=== PATIENT | female | born 1980 | race African-American/Black ===

== ENCOUNTER 2018-08-24 06:07 | Emergency (ER) | payer MEDICAID ==
[~2018-08-24] VITALS: Ht 170.2 cm; Wt 81.6 kg
[2018-08-24 06:53] LABS: Basophils # (auto) 0.1 uL; Basophils % (auto) 1.1 % (0.0-2.0); Eosinophils # (auto) 0.2 uL; Eosinophils % (auto) 1.9 % (0.0-7.0); Hematocrit 42.4 % (36.0-46.0); Hemoglobin 13.8 g/dL (12.2-16.2); Lymphocytes # (auto) 3.1 uL; Lymphocytes % (auto) 32.7 % (10.0-50.0); Mean Corpuscular Hemoglobin 27.7 pg (28.0-32.0); Mean Corpuscular Hgb Conc. 32.6 g/dL (32.0-36.0); Monocytes # (auto) 0.6 uL; Monocytes % (auto) 6.4 % (0.0-12.0); Neutrophils # (auto) 5.5 uL; Neutrophils % (auto) 57.9 % (37.0-80.0); Nucleated Red Blood Cells % 0.1 %; Platelet Count (auto) 252 10^3/uL (140-450); Red Blood Cells 4.98 10^6/uL (4.0-5.20); Red Cell Distribution Width 15.2 % (11.8-14.3); White Blood Cell 9.6 10^3/uL (4.4-10.8)
[2018-08-24] MEDS ORDERED: KETOROLAC TROMETH 30 MG/ML 1ML VIAL IV ONE (07:00)
[2018-08-24] MEDS ORDERED: PROMETHAZINE HCL 25 MG/ML 1ML IV ONE (07:00)
[2018-08-24] MEDS ORDERED: HYDROcodone-ACET 10/325MG TAB PO ONE (07:00)
[2018-08-24 07:06] LABS: Potassium 4.1 mmol/L (3.5-5.1)
[2018-08-24 07:14] LABS: Albumin 3.8 g/dL (3.4-5.0); BUN/Creatinine Ratio 18.8; Bilirubin, Total 0.2 mg/dL (0.2-1.0); Calcium 8.8 mg/dL (8.5-10.1)
[2018-08-24] MEDS ORDERED: cloNIDine HCL 0.1 MG TAB PO ONE (08:00)
[2018-08-24 09:46] VITALS: BP 131/92
== END 2018-08-24 09:48 | disposition home or self-care (01) ==
LOC: ER 06:07
DX: R51 Headache (principal); I10 Essential (primary) hypertension; Z88.0 Allergy status to penicillin
CPT/HCPCS: 36415; 70450; 80053; 84702; 85025; 96374; 96375; 99284; J1885; J2550

== ENCOUNTER 2019-09-30 15:05 | Emergency (ER) | payer MEDICAID ==
[~2019-09-30] VITALS: Ht 170.2 cm; Wt 84.8 kg
[2019-09-30 15:39] VITALS: BP 149/95
[2019-09-30] MEDS ORDERED: PROMETHAZINE HCL 25 MG/ML 1ML IM ONE (16:00)
[2019-09-30] MEDS ORDERED: SUMAtriptan SUCCINATE 25 MG TAB PO ONE (16:00)
== END 2019-09-30 16:56 | disposition home or self-care (01) ==
LOC: ER 15:05
DX: G43.909 Migraine, unspecified, not intractable, without status migrainosus (principal); I10 Essential (primary) hypertension
CPT/HCPCS: 96372; 99283; J2550